=== PATIENT | male | born 1990 | race Caucasian/White ===

== ENCOUNTER 2025-02-26 20:57 | Emergency (ER) | payer BC ==
[2025-02-26 21:52] LABS: BASOPHILS ABSOLUTE AUTO 0.09 K/uL (0.00-0.20); BASOPHILS PERCENT AUTO 0.6 % (0.0-1.0); EOSINOPHILS ABSOLUTE AUTO 0.29 K/uL (0.00-0.45); EOSINOPHILS PERCENT AUTO 1.9 % (0.0-6.0); HEMATOCRIT 42.1 % (42.0-52.0); HEMOGLOBIN 13.8 g/dL (14.0-18.0); IMMATURE GRAN ABSOLUTE AUTO 0.21 K/uL (0.00-0.05); IMMATURE GRAN PERCENT AUTO 1.4 % (0.0-0.4); LYMPHOCYTES ABSOLUTE AUTO 2.93 K/uL (1.00-4.80); LYMPHOCYTES PERCENT AUTO 19.2 % (24.0-44.0); MEAN CORPUSCULAR HEMOGLOBIN 28.8 pg (28.0-32.0); MEAN CORPUSCULAR HGB CONC 32.8 g/dL (32.0-36.0); MEAN CORPUSCULAR VOLUME 87.9 fL (83.0-99.0); MEAN PLATELET VOLUME 9.5 fL (9.4-12.4); MONOCYTES ABSOLUTE AUTO 1.59 K/uL (0.00-0.80); MONOCYTES PERCENT AUTO 10.4 % (0.0-8.0); NEUTROPHILS ABSOLUTE AUTO 10.18 K/uL (1.80-7.70); NEUTROPHILS PERCENT AUTO 66.5 % (41.0-71.0); PLATELET COUNT,PLT 349 K/uL (150-400); RED BLOOD CELL COUNT 4.79 M/uL (4.52-5.90); WHITE BLOOD CELL COUNT,WBC 15.29 K/uL (3.9-11.3)
[2025-02-26 22:22] LABS: A/G RATIO 1.1 (0.9-1.6); ALBUMIN 4.1 g/dL (3.4-5.0); BILIRUBIN TOTAL 0.5 mg/dL (0.2-1.0); CALCIUM 8.9 mg/dL (8.5-10.1); CARBON DIOXIDE,CO2 28.8 mmol/L (21.0-32.0); CREATININE 1.4 mg/dL (0.8-1.3); EST CRCL DRUG DOSING (CG) 80.06 mL/min; POTASSIUM,K 4.2 mmol/L (3.5-5.1); PROTEIN TOTAL,TP 7.7 g/dL (6.4-8.2); URIC ACID 10.8 mg/dL (2.6-7.2)
[2025-02-27] MEDS: Triamcinolone Acetonide 40 MG/ML 1 ML SDV IM ONE (02:03)
[2025-02-27] MEDS: Acetaminophen/HYDROcodone 325-5 MG Tab PO ONE (02:03)
[2025-02-27] MEDS: Indomethacin 25 MG Cap PO ONE (03:19)
[2025-02-27] MEDS: Colchicine 0.6 MG Tab PO ONE ×2 (03:19→04:56)
[2025-02-27] MEDS: Famotidine 20 MG Tab PO ONE (03:19)
== END 2025-02-27 05:43 | disposition home or self-care (01) ==
LOC: MW.ED 20:57
DX: M10.9 Gout, unspecified (principal)
CPT/HCPCS: 36415; 80053; 84550; 85025; 96372; 99283; A9270; J3301

== ENCOUNTER 2025-05-15 13:46 | Emergency (ER) | payer BC ==
[2025-05-15] MEDS: Ketorolac 30 MG/ML SDV IM ONE (15:13)
== END 2025-05-15 15:23 | disposition home or self-care (01) ==
LOC: MW.ED 13:46
DX: M10.9 Gout, unspecified (principal); Z79.899 Other long term (current) drug therapy
CPT/HCPCS: 96372; 99283; J1100; J1885